=== PATIENT | male | born 2000 | race Two or more races ===

== ENCOUNTER 2025-04-26 10:17 | Emergency (ER) | payer BC ==
[~2025-04-26] VITALS: Ht 172.7 cm; Wt 61.2 kg
[2025-04-26] MEDS ORDERED: ONDANSETRON HCL/PF 4 MG/2 ML VIAL ONE (11:08)
[2025-04-26] MEDS ORDERED: FAMOTIDINE/PF INJ 20 MG/2 ML VIAL IV ONE (11:09)
[2025-04-26] MEDS: FAMOTIDINE/PF INJ 20 MG/2 ML VIAL IV ONE (11:16)
[2025-04-26] MEDS: IV NS 0.9% 1,000 ML BAG IV ONE (11:16)
[2025-04-26 11:18] LABS: PLATELET COUNT (AUTO) 210 K/uL (150-450); RED BLOOD CELL COUNT(AUTO) 5.32 MIL/uL (4.5-6.0); RED CELL DISTRIBUTION WIDTH 12.7 % (11.5-15.0); WHITE BLOOD COUNT (AUTO) 14.4 K/uL (4.3-11.0)
[2025-04-26] MEDS: ONDANSETRON HCL/PF 4 MG/2 ML VIAL IVP ONE (11:18)
[2025-04-26 11:28] LABS: CALCIUM, SERUM 9.0 mg/dL (8.5-10.1); CREATININE 0.9 mg/dL (0.6-1.3); SODIUM SERUM 139.0 mmol/L (136-145); UREA NITROGEN, BLOOD 8.0 mg/dL (7-18)
[2025-04-26 11:34] LABS: ASPARTATE AMINOTRANSFERASE 22.0 U/L (15-37); TOTAL PROTEIN, SERUM 8.2 g/dL (6.4-8.2)
[2025-04-26] MEDS ORDERED: ONDA4TAB5 PO (12:20)
[2025-04-26 12:36] VITALS: BP 138/82; TEMP 97.9; O2SAT 99
== END 2025-04-26 12:37 | disposition home or self-care (01) ==
LOC: ER 10:33
DX: R11.10 Vomiting, unspecified (principal); R19.7 Diarrhea, unspecified
CPT/HCPCS: 99284; 96374; 96375; 85025; 80048; 83690; 80076; 36415; J1308; J2405